=== PATIENT | female | born 1980 | race Caucasian/White ===

== ENCOUNTER 2017-07-14 19:03 | Emergency (ER) | payer MEDICAID ==
[~2017-07-14] VITALS: Ht 162.6 cm; Wt 45.4 kg
[2017-07-14] MEDS ORDERED: NACL 0.9% 1,000 ML IV ONE (19:15)
[2017-07-14] MEDS ORDERED: ONDANSETRON HCL 4 MG/2 ML VIAL IVP ONE (19:15)
[2017-07-14 19:25] VITALS: BP_SYST 109
--- NOTE | 2017-07-14 19:40 | NUR ---
Patient to ER bed 4 to gown for evaluation. Side rails up. Report given from Nancy DUNN.
--- NOTE | 2017-07-14 19:45 | NUR ---
Pt came in with a complaint of lower back pain, nausea, and headache. Pt has history of kidney problem, asthma, DM. Had tubal in past. No other complaint. Pt is AAOX4. No respiratory distress. Will continue to monitor Pt.
--- NOTE | 2017-07-14 19:50 | NUR ---
ER MD DENNIS AT BEDSIDE FOR MEDICAL EVALUATION.
[2017-07-14 19:54] LABS: BILIRUBIN,URINE NEGATIVE (NEGATIVE); BLOOD, URINE 1+ (NEGATIVE); CLARITY/URINE CLOUDY (CLEAR); COLOR,URINE YELLOW (YELLOW); GLUCOSE,URINE NEGATIVE (NEGATIVE); KETONES,URINE NEGATIVE (NEGATIVE); LEUKOCYTE ESTERASE ,URINE 1+ (NEGATIVE); NITRITE, URINE POSITIVE (NEGATIVE); PROTEIN URINE TRACE (NEGATIVE); UROBILINOGEN,URINE 0.2 (0.2-1.0)
--- NOTE | 2017-07-14 20:05 | NUR ---
Unable to establish IV access after multiple attempts. Elizabeth SABILLON made aware.
[2017-07-14 20:07] LABS: BARBITURATE, URINE NEGATIVE (NEG <=200)
[2017-07-14 20:08] LABS: BENZODIAZEPINE, URINE NEGATIVE (NEG <=150); CANNABINOID, URINE NEGATIVE (NEG <=50); COCAINE, URINE NEGATIVE (NEG <=150); METHAMPHETAMINES SCREEN,URINE POSITIVE (NEG <=500); OPIATE, URINE NEGATIVE (NEG <=100); PHENCYCLIDINE SCREEN,URINE NEGATIVE (NEG <=25); UR TRICYCLIC ANTIDEPRESSANTS NEGATIVE (NEG <=300); URINE AMPHETAMINE POSITIVE (NEG <=500); URINE METHADONE NEGATIVE (NEG <=200); URINE OXYCODONE SCREEN NEGATIVE (NEG <=100); URINE PROPOXYPHENE SCREEN NEGATIVE (NEG <=300)
[2017-07-14 20:09] LABS: BACTERIA,URINE MANY /HPF (None Seen); MUCUS,URINE 1+ /LPF (None Seen); WBC,URINE 20-50 /HPF (0-3)
[2017-07-14] MEDS ORDERED: KETOROLAC TROMETHAMINE 60 MG/2 ML VIAL IM ONE (20:15)
[2017-07-14] MEDS ORDERED: ONDANSETRON 4 MG ODT TAB PO ONE (20:15)
[2017-07-14] MEDS ORDERED: MAGNESIUM CITRATE 300 ML ORAL SOLUTION PO ONE (21:00)
[2017-07-14 21:09] VITALS: BP_SYST 113
--- NOTE | 2017-07-14 21:09 | NUR ---
Patient given written and verbal discharge instructions and verbalizes understanding. ER MD discussed with patient the results and treatment provided. Patient in stable condition. ID arm band removed. IV catheter removed intact and dressing applied, no active bleeding. Rx of Cipro, Miralax, tylenol extra strength and pyridium given. Patient educated on pain management and to follow up with PMD. Pain Scale 3/10 at this time, tolerable for patient. Opportunity for questions provided and answered.
== END 2017-07-14 21:09 | disposition home or self-care (01) ==
LOC: SED 19:03
DX: N10 Acute pyelonephritis (principal); K59.00 Constipation, unspecified; J45.909 Unspecified asthma, uncomplicated; F15.10 Other stimulant abuse, uncomplicated; E11.9 Type 2 diabetes mellitus without complications; Z88.0 Allergy status to penicillin; Z88.1 Allergy status to other antibiotic agents; Z90.49 Acquired absence of other specified parts of digestive tract
CPT/HCPCS: 74176; 80307; 81000; 81025; 87086; 87186; 96372; 99285; J1885; Q0162

== ENCOUNTER 2017-10-09 05:29 | Emergency (ER) | payer MEDICAID ==
[~2017-10-09] VITALS: Ht 162.6 cm; Wt 46.3 kg
[2017-10-09 05:37] VITALS: BP_SYST 104
--- NOTE | 2017-10-09 05:37 | NUR ---
Patient to ER bed 7 to gown for evaluation. Side rails up. Report given to SHAUN MOREJON.
--- NOTE | 2017-10-09 05:40 | NUR ---
Patient AOx4, ambulatory, presents to ER with complaint of right inner malleolus abscess. Patient states symptoms began 17 days ago. Redness and swelling noted to site. Patient states she has not taken any medication for abscess. No other symptoms or complaints at this time.
--- NOTE | 2017-10-09 06:41 | NUR ---
SRIRAM Moran at bedside examining patient.
[2017-10-09 06:50] VITALS: BP_SYST 110
--- NOTE | 2017-10-09 06:50 | NUR ---
Patient given written and verbal discharge instructions and verbalizes understanding. ER MD discussed with patient the results and treatment provided. Patient in stable condition. ID arm band removed. Rx of Bactrim given. Patient educated on pain management and to follow up with PMD. Pain Scale 2/10 tolerable to patient. Opportunity for questions provided and answered.
== END 2017-10-09 06:50 | disposition home or self-care (01) ==
LOC: SED 05:29
DX: L02.415 Cutaneous abscess of right lower limb (principal); E11.9 Type 2 diabetes mellitus without complications; J45.909 Unspecified asthma, uncomplicated; Z88.0 Allergy status to penicillin; Z88.1 Allergy status to other antibiotic agents
CPT/HCPCS: 99283